=== PATIENT | male | born 1955 | race Caucasian/White ===

== ENCOUNTER → 2016-10-24 | Outpatient (CLI) | payer MEDICAID ==
[~2016-10-24] MED LIST: AC325T PO; ALBU2.5V12 INH; ALBU6.7H IH; CEPH-507 PO; FLUT125C PO; FNST5T PO; IPRA3AMP11 INH; LEVO750T39 PO; LISI1TAB6 PO; NEB INH; POLY10DR19 OP; PRED5DRO OP; TAMS0.4C2 PO; UMEC1BLS
== END ==
LOC: LAB 12:08
PROVIDERS: ATTEND Family Medicine
DX: C61 Malignant neoplasm of prostate (principal)
CPT/HCPCS: 36415; 84153